=== PATIENT | female | born 1960 | race Caucasian/White ===

== ENCOUNTER 2017-01-16 02:19 | Inpatient (IN) | payer OTHER ==
[~2017-01-16] VITALS: Ht 170.2 cm; Wt 131.4 kg
[2017-01-16 03:23] LABS: Albumin 1.9 g/dL (3.4-5.0); Anion Gap 16 (5-15); BUN/Creatinine Ratio 18.7; Blood Urea Nitrogen 17 mg/dL (7-18); Calcium 7.3 mg/dL (8.5-10.1); Carbon Dioxide 30 mmol/L (21-32); Chloride 86 mmol/L (98-107); GFR African American 82 mL/min; GFR Non-African American 68 mL/min; Glucose 86 mg/dL (74-106); Potassium 3.4 mmol/L (3.5-5.1); Sodium 132 mmol/L (136-145)
[2017-01-16 03:28] LABS: Alkaline Phosphatase 265 U/L (45-117); Aspartate Aminotransferase 214 U/L (15-37); Bilirubin, Total 2.6 mg/dL (0.2-1.0); Total Protein 5.2 g/dL (6.4-8.2)
[2017-01-16 03:30] LABS: Basophils # (auto) 0 uL; CONDITION Y; DEFINITIVE SEE PRINTOUT; Eosinophils # (auto) 0 uL; Eosinophils % (auto) 0.1 % (0.0-7.0); Hematocrit 37.4 % (36.0-46.0); Hemoglobin 12.5 g/dL (12.2-16.2); Lymphocytes # (auto) 1.2 uL; Lymphocytes % (auto) 8.2 % (10.0-50.0); Mean Corpuscular Hemoglobin 35.2 pg (28.0-32.0); Mean Corpuscular Hgb Conc. 33.5 g/dL (32.0-36.0); Mean Corpuscular Volume 105.1 fL (80.0-100.0); Mean Platelet Volume 7.7 fL (7.4-10.4); Monocytes # (auto) 0.8 uL; Monocytes % (auto) 5.4 % (0.0-12.0); Neutrophils # (auto) 12.2 uL; Neutrophils % (auto) 86.3 % (37.0-80.0); Platelet Count (auto) 234 10^3/uL (140-450); Red Cell Distribution Width 18.9 % (11.6-16.0); White Blood Cell 14.2 10^3/uL (4.4-10.8)
[2017-01-16 05:15] LABS: Urine RBC None Seen /hpf (0 - 4)
[2017-01-16 05:26] LABS: Urine Blood Negative /uL (Negative); Urine Color Yellow (Yellow); Urine Glucose Normal (Normal); Urine Hyaline Cast MOD /lpf (0 - 2); Urine Ketone Negative (Negative); Urine Mucus FEW (None Seen); Urine Nitrite Negative (Negative); Urine Urobilinogen >12.0 mg/dL (Negative); Urine pH 5.5 (5.0-8.0)
[2017-01-16 05:27] LABS: Urine Bilirubin 1+ (Negative)
[2017-01-16] MEDS ORDERED: SODIUM CHLORIDE 0.9% 1,000 ML IV ONE (07:11)
[2017-01-16] MEDS ORDERED: SPIRONOLACTONE 25 MG TAB PO ONE (07:15)
[2017-01-16] MEDS ORDERED: MORPHINE SULFATE 10 MG/ML INJ 1ML SDV IV ONE (07:15)
[2017-01-16] MEDS ORDERED: FUROSEMIDE 40 MG/4 ML VIAL IV ONE (07:15)
[2017-01-16] MEDS ORDERED: cefTRIAXone 1GM/50ML D5W 50 ML IV ONE ×2 (07:15→13:15)
[2017-01-16 08:41] LABS: B-Type Natriuretic Peptide 21.94 pg/mL (0-100)
[2017-01-16 08:52] LABS: Temperature: 24.1 C (20.0-25.0)
[2017-01-16] MEDS ORDERED: MORPHINE SULF INJ 2 MG/ML SYRINGE 1ML IV PRN ×2 (12:45)
[2017-01-16] MEDS ORDERED: NITROGLYCERIN 0.4 MG SL TAB SL PRN (12:45)
[2017-01-16] MEDS ORDERED: LORazepam 0.5 MG TAB PO PRN (12:45)
[2017-01-16] MEDS ORDERED: PROMETHAZINE HCL 25 MG/ML 1ML IV PRN (12:45)
[2017-01-16] MEDS ORDERED: LACTULOSE 20Gm/30ML SOLN PO PRN (12:45)
[2017-01-16] MEDS ORDERED: IOHEXOL 350 MG/ML 100ML IJ ONE (12:50)
[2017-01-16] MEDS ORDERED: VANCOMYCIN PER PHARMACY 0 MG IV SCH (13:15)
[2017-01-16] MEDS ORDERED: FAMOTIDINE 20 MG TAB PO ONE (13:15)
[2017-01-16] MEDS ORDERED: ENOXAPARIN SOD 40 MG/0.4 ML SYRINGE SC ONE (13:15)
[2017-01-16 13:53] LABS: INR 1.05 (0.9-1.15); Partial Thromboplastin Time 26.3 sec (22.64-33.71); Prothrombin Time 11.5 sec (9.37-12.3)
[2017-01-16] MEDS ORDERED: CLINDAMYCIN 600MG IV 50 ML IV SCH (14:00)
[2017-01-16] MEDS: MORPHINE SULF 30 mg ER tab PO SCH ×2 (14:00→22:49)
[2017-01-16] MEDS ORDERED: VANCOMYCIN 1,250 MG in D5W 5% 250 ML IV SCH (15:00)
[2017-01-16 15:17] VITALS: BP 103/69
[2017-01-16] MEDS ORDERED: PIPERACILLIN-TAZOB 3.375GM 100 ML IV SCH (16:00)
[2017-01-16 17:00] VITALS: BP 101/71
[2017-01-16] MEDS: VANCOMYCIN 1,250 MG in D5W 5% 250 ML IV SCH (18:05)
[2017-01-16] MEDS ORDERED: MORP1CAP9 PO (18:58)
[2017-01-16 20:00] VITALS: BP 129/60
[2017-01-16 22:00] VITALS: BP 129/60
[2017-01-16] MEDS: FAMOTIDINE 20 MG TAB PO SCH (22:48)
[2017-01-16] MEDS: PIPERACILLIN-TAZOB 3.375GM 100 ML IV SCH (22:51)
[2017-01-17] MEDS: TEMAZEPAM 15 MG CAP PO PRN ×2 (00:23→21:43)
[2017-01-17] MEDS: PIPERACILLIN-TAZOB 3.375GM 100 ML IV SCH ×3 (03:36→15:40)
[2017-01-17 05:00] VITALS: BP 124/70
[2017-01-17] MEDS: VANCOMYCIN 1,250 MG in D5W 5% 250 ML IV SCH ×2 (05:37→17:35)
[2017-01-17] MEDS: MORPHINE SULF 30 mg ER tab PO SCH ×3 (05:48→21:43)
[2017-01-17 06:01] LABS: Basophils # (auto) 0 uL; Basophils % (auto) 0.3 % (0.0-2.0); CONDITION Y; DEFINITIVE SEE PRINTOUT; Eosinophils # (auto) 0 uL; Eosinophils % (auto) 0.3 % (0.0-7.0); Hematocrit 34.4 % (36.0-46.0); Hemoglobin 11.5 g/dL (12.2-16.2); Lymphocytes % (auto) 11.2 % (10.0-50.0); Mean Corpuscular Hemoglobin 35.3 pg (28.0-32.0); Mean Corpuscular Hgb Conc. 33.5 g/dL (32.0-36.0); Mean Corpuscular Volume 105.5 fL (80.0-100.0); Mean Platelet Volume 7.5 fL (7.4-10.4); Monocytes # (auto) 0.6 uL; Monocytes % (auto) 6.4 % (0.0-12.0); Neutrophils # (auto) 7.4 uL; Neutrophils % (auto) 81.8 % (37.0-80.0); Platelet Count (auto) 163 10^3/uL (140-450); Red Cell Distribution Width 19.5 % (11.6-16.0); White Blood Cell 9.1 10^3/uL (4.4-10.8)
[2017-01-17 06:28] LABS: Albumin 1.8 g/dL (3.4-5.0); BUN/Creatinine Ratio 22.1; Bilirubin, Total 2.9 mg/dL (0.2-1.0); Calcium 7.3 mg/dL (8.5-10.1); Total Protein 4.7 g/dL (6.4-8.2)
[2017-01-17 09:00] VITALS: BP 115/67
[2017-01-17] MEDS ORDERED: cefTRIAXone 1GM/50ML D5W 50 ML IV SCH (09:00)
[2017-01-17] MEDS: FAMOTIDINE 20 MG TAB PO SCH ×2 (09:42→21:43)
[2017-01-17] MEDS: ENOXAPARIN SOD 40 MG/0.4 ML SYRINGE SC SCH (09:42)
[2017-01-17] MEDS: HYDROcodone-ACET 10/325MG TAB PO PRN (09:43)
[2017-01-17] MEDS: MORPHINE SULF INJ 2 MG/ML SYRINGE 1ML IV PRN ×2 (10:39→15:41)
[2017-01-17 13:00] VITALS: BP 121/63
[2017-01-17 17:00] VITALS: BP 115/68
[2017-01-17 19:41] LABS: BUN/Creatinine Ratio 18.8; Calcium 7.4 mg/dL (8.5-10.1)
[2017-01-17] MEDS: POTASSIUM CHL 20 Meq TABLET PO SCH (21:43)
[2017-01-17 22:00] VITALS: BP 126/69
[2017-01-18] MEDS: MORPHINE SULF INJ 2 MG/ML SYRINGE 1ML IV PRN ×3 (04:08→16:16)
[2017-01-18 05:00] VITALS: BP 100/50
[2017-01-18 05:44] LABS: Temperature: 23.5 C (20.0-25.0)
[2017-01-18] MEDS: MORPHINE SULF 30 mg ER tab PO SCH ×3 (05:54→23:47)
[2017-01-18 06:10] LABS: Albumin 1.9 g/dL (3.4-5.0); BUN/Creatinine Ratio 16.9; Calcium 7.4 mg/dL (8.5-10.1); Potassium 3.1 mmol/L (3.5-5.1)
[2017-01-18 06:13] LABS: Bilirubin, Total 1.9 mg/dL (0.2-1.0); Total Protein 5.2 g/dL (6.4-8.2)
[2017-01-18 09:00] VITALS: BP 108/67
[2017-01-18] MEDS: cefTRIAXone 1GM/50ML D5W 50 ML IV SCH (09:43)
[2017-01-18] MEDS: FAMOTIDINE 20 MG TAB PO SCH ×2 (09:43→22:03)
[2017-01-18] MEDS: ENOXAPARIN SOD 40 MG/0.4 ML SYRINGE SC SCH (09:43)
[2017-01-18] MEDS: POTASSIUM CHL 20 Meq TABLET PO SCH ×2 (09:43→22:02)
[2017-01-18 13:00] VITALS: BP 103/76
[2017-01-18 16:58] VITALS: BP 99/67
[2017-01-18] MEDS: HYDROcodone-ACET 10/325MG TAB PO PRN (17:14)
[2017-01-18] MEDS ORDERED: KETOROLAC TROMETH 60MG/2ML VIAL IM PRN (17:30)
[2017-01-18 17:50] LABS: Potassium 3.7 mmol/L (3.5-5.1)
[2017-01-18] MEDS: FOLIC ACID 1 MG TAB PO SCH (18:14)
[2017-01-18] MEDS: VANCOMYCIN 1GM/250ML D5W 250 ML IV SCH (18:14)
[2017-01-18 22:00] VITALS: BP 149/79
[2017-01-18] MEDS: TEMAZEPAM 15 MG CAP PO PRN (23:48)
[2017-01-19] MEDS: POTASSIUM CHL 20 Meq TABLET PO SCH ×3 (04:52→21:43)
[2017-01-19] MEDS: MORPHINE SULF 30 mg ER tab PO SCH ×3 (04:52→21:43)
[2017-01-19 05:00] VITALS: BP 131/74
[2017-01-19] MEDS: VANCOMYCIN 1GM/250ML D5W 250 ML IV SCH ×2 (06:38→17:31)
[2017-01-19 09:00] VITALS: BP 123/49
[2017-01-19] MEDS: cefTRIAXone 1GM/50ML D5W 50 ML IV SCH (09:00)
[2017-01-19] MEDS: FAMOTIDINE 20 MG TAB PO SCH ×2 (09:56→21:44)
[2017-01-19] MEDS: ENOXAPARIN SOD 40 MG/0.4 ML SYRINGE SC SCH (09:56)
[2017-01-19] MEDS: FOLIC ACID 1 MG TAB PO SCH (09:56)
[2017-01-19] MEDS: MORPHINE SULF INJ 2 MG/ML SYRINGE 1ML IV PRN ×2 (09:56→16:42)
[2017-01-19] MEDS: HYDROcodone-ACET 10/325MG TAB PO PRN ×2 (12:14→18:26)
[2017-01-19 13:00] VITALS: BP 103/62
[2017-01-19 17:00] VITALS: BP 103/68
[2017-01-19 21:53] VITALS: BP 123/69
[2017-01-20] MEDS: HYDROcodone-ACET 10/325MG TAB PO PRN ×3 (00:21→15:52)
[2017-01-20] MEDS: VANCOMYCIN 1GM/250ML D5W 250 ML IV SCH (05:49)
[2017-01-20] MEDS: POTASSIUM CHL 20 Meq TABLET PO SCH ×3 (05:49→21:45)
[2017-01-20] MEDS: FUROSEMIDE 20 MG TAB PO SCH ×2 (05:50→15:52)
[2017-01-20] MEDS: MORPHINE SULF 30 mg ER tab PO SCH ×3 (06:05→21:45)
[2017-01-20 06:13] VITALS: BP 130/79
[2017-01-20] MEDS: cefTRIAXone 1GM/50ML D5W 50 ML IV SCH (08:37)
[2017-01-20 09:00] VITALS: BP 121/74
[2017-01-20] MEDS: FAMOTIDINE 20 MG TAB PO SCH ×2 (09:53→21:46)
[2017-01-20] MEDS: ENOXAPARIN SOD 40 MG/0.4 ML SYRINGE SC SCH (09:53)
[2017-01-20] MEDS: FOLIC ACID 1 MG TAB PO SCH (09:53)
[2017-01-20 13:00] VITALS: BP 116/77
[2017-01-20 13:33] LABS: BUN/Creatinine Ratio 10.6; Calcium 7.8 mg/dL (8.5-10.1); Potassium 3.9 mmol/L (3.5-5.1)
[2017-01-20 17:00] VITALS: BP 105/67
[2017-01-20 21:02] VITALS: BP 141/72
[2017-01-21] MEDS: HYDROcodone-ACET 10/325MG TAB PO PRN ×3 (00:05→12:52)
[2017-01-21 05:07] VITALS: BP 139/70
[2017-01-21] MEDS ORDERED: ALPRAZolam 0.25 MG TAB PO PRN (05:15)
[2017-01-21] MEDS: POTASSIUM CHL 20 Meq TABLET PO SCH ×2 (06:01→14:46)
[2017-01-21] MEDS: FUROSEMIDE 20 MG TAB PO SCH (06:02)
[2017-01-21] MEDS: MORPHINE SULF 30 mg ER tab PO SCH ×2 (06:08→14:46)
[2017-01-21 06:56] LABS: Albumin 2.1 g/dL (3.4-5.0); BUN/Creatinine Ratio 11.7; Bilirubin, Total 1.2 mg/dL (0.2-1.0); Calcium 7.7 mg/dL (8.5-10.1); Total Protein 5.9 g/dL (6.4-8.2)
[2017-01-21 07:43] LABS: Potassium 3.6 mmol/L (3.5-5.1)
[2017-01-21] MEDS ORDERED: GASTROGRAFIN 30 ML SOL ONE (08:45)
[2017-01-21 09:11] VITALS: BP 119/78
[2017-01-21] MEDS: FOLIC ACID 1 MG TAB PO SCH (10:00)
[2017-01-21] MEDS: FAMOTIDINE 20 MG TAB PO SCH (10:00)
[2017-01-21] MEDS: ENOXAPARIN SOD 40 MG/0.4 ML SYRINGE SC SCH (10:16)
[2017-01-21] MEDS: cefTRIAXone 1GM/50ML D5W 50 ML IV SCH (10:17)
[2017-01-21] MEDS ORDERED: IOHEXOL 300 MG/ML 100ML BOTTLE IJ ONE (11:46)
[2017-01-21 13:00] VITALS: BP 117/70
[2017-01-21] MEDS ORDERED: ONDANSETRON HCL 4 MG/2 ML VIAL IV PRN (13:15)
[2017-01-21 17:40] VITALS: BP 117/70
== END 2017-01-21 18:45 | disposition home or self-care (01) | DRG 872 ==
LOC: EDBD 02:19 → ER 02:19 → TELE 02:20 → TELE-E-ADS 14:15 → TELE-WESTW 16:35
PROVIDERS: ADMIT Internal Medicine; ATTEND Internal Medicine Pulmonary Disease
DX: A41.9 Sepsis, unspecified organism (principal); N39.0 Urinary tract infection, site not specified; E87.1 Hypo-osmolality and hyponatremia; L03.115 Cellulitis of right lower limb; L03.116 Cellulitis of left lower limb; I50.30 Unspecified diastolic (congestive) heart failure; Z68.42 Body mass index [BMI] 45.0-49.9, adult; E46 Unspecified protein-calorie malnutrition; E03.9 Hypothyroidism, unspecified; E66.01 Morbid (severe) obesity due to excess calories; G89.29 Other chronic pain; Z98.84 Bariatric surgery status; E87.6 Hypokalemia; G89.4 Chronic pain syndrome; Z71.89 Other specified counseling; Z90.49 Acquired absence of other specified parts of digestive tract; F17.200 Nicotine dependence, unspecified, uncomplicated; B96.20 Unspecified Escherichia coli [E. coli] as the cause of diseases classified elsewhere
CPT/HCPCS: 36415; 51702; 71010; 74177; 76705; 80048; 80051; 80053; 80061; 80202; 81001; 82550; 82607; 82746; 83735; 83880; 84443; 84484; 85025; 85379; 85610; 85652; 85730; 87040; 87081; 87086; 87088; 87186; 93005; 93306; 93970; 94761; 96365; 96372; 96375; 97530; J0696; J1885; J2405; J2543; J7060